=== PATIENT | female | born 1975 ===

== ENCOUNTER 2017-03-10 15:12 | Inpatient (IN) | payer MEDICAID ==
[2017-03-10 15:12] VITALS: BMI 26.1
[2017-03-10 15:45] LABS: RBC URINE 24 /hpf (0-3); URINE BACTERIA MOD (<OCC); URINE BILIRUBIN NEGATIVE (NEGATIVE); URINE BLOOD 2+ (NEGATIVE); URINE COLOR Yellow (YELLOW); URINE GLUCOSE (UA) 3+ mg/dL (Normal); URINE KETONE NEGATIVE (NEGATIVE); URINE LEUKOCYTE ESTERASE 3+ Leu/uL (Negative); URINE PROTEIN 2+ mg/dL (NEGATIVE); URINE UROBILINOGEN NORMAL mg/dL (0.2-1.0); WBC CLUMPS MANY /hpf; WBC URINE 1227 /hpf (0-5)
--- NOTE | 2017-03-10 15:50 | C.PDOC ---
History Of Present Illness 41 yr old female w/PMHx of IDDM, Thalassemia, presents to the ER for evaluation of superpubic discomfort for the past 3 days, associated with pain with urination and frequency. Otherwise, Patient denies fever, chills, headache, dizziness, malaise, chest pain, SOB, dyspnea, diaphoresis, palpitation, abd. pain, nausea, vomiting, diarrhea, hematuria, vaginal discharge, prolong vaginal bleeding, denies blood in stool, denies back pain. Pt admits, " my sugar was high for past few weeks. I saw my doctor who change my Insulin to different brand. Today, when I checked my sugar it was in 300'". Ambulate to Ed for evaluation, not in any apparent distress. Time Seen by Provider: 03/10/17 15:31 Chief Complaint (Nursing): Female Genitourinary History Per: Patient History/Exam Limitations: no limitations Onset/Duration Of Symptoms: Days (3) Past Medical History Reviewed: Historical Data, Nursing Documentation, Vital Signs Vital Signs: Last Vital Signs Temp 98.2 F 03/10/17 22:57 Pulse 92 H 03/10/17 22:57 Resp 18 03/10/17 22:57 BP 121/62 03/10/17 22:57 Pulse Ox 98 03/10/17 22:24 - Medical History PMH: Diabetes - [facility] Procedures NAIL REMOVAL (07/08/13) Family History: States: No Known Family Hx - Social History Hx Tobacco Use: No Hx Alcohol Use: No Hx Substance Use: No - Immunization History Hx Tetanus Toxoid Vaccination: Yes Hx Influenza Vaccination: No Hx Pneumococcal Vaccination: No Review Of Systems Except As Marked, All Systems Reviewed And Found Negative. Constitutional: Negative for: Fever, Chills Cardiovascular: Negative for: Chest Pain Respiratory: Negative for: Shortness of Breath Gastrointestinal: Positive for: Abdominal Pain (Superpubic discomfort ). Negative for: Nausea, Vomiting, Diarrhea Genitourinary: Positive for: Dysuria, Frequency (Urination ). Negative for: Hematuria, Vaginal Discharge, Vaginal Bleeding Musculoskeletal: Negative for: Back Pain Neurological: Negative for: Weakness, Numbness Physical Exam - Physical Exam Appears: Non-toxic, No Acute Distress Skin: Warm, Dry, No Diaphoretic, No Pale, No Rash Eye(s): bilateral: PERRL Oral Mucosa: Moist, No Drooling Tongue: Normal Appearing Lips: Normal Appearing Throat: No Drooling Neck: Supple, Other ((-) carotid bruits) Chest: Symmetrical, No Tenderness Cardiovascular: Rhythm Regular, No Murmur, No JVD Respiratory: Normal Breath Sounds, No Accessory Muscle Use, No Rales, No Rhonchi , No Stridor, No Wheezing Gastrointestinal/Abdominal: Soft, Tenderness (Mild superpubic tenderness ), No Guarding, No Rebound Back: No CVA Tenderness Extremity: Normal ROM, No Pedal Edema, No Deformity, No Swelling Neurological/Psych: Oriented x3, Normal Speech, Normal Motor, Normal Sensation, Normal Reflexes ED Course And Treatment - Laboratory Results Result Diagrams: 03/10/17 16:53 03/10/17 16:53 Lab Interpretation: Abnormal O2 Sat by Pulse Oximetry: 100 (RA) Pulse Ox Interpretation: Normal Progress Note: Blood work was review and appears abnormal. Pt reports, has PMD in [facility] now. Preior, was pt of clinic of [facility]. On re-eavluation, remained unchanged. results review and discussed with pt, appears abnoraml from baseline H/H 02/18. case discussed with Hospitalist and admission arranged with Dx: Acute anemia, Hyperglycemia hx of IDDM, UTI, Hx of Thalassemia. Medical Decision Making Medical Decision Making: PLAN: * HCG * Urinalysis Disposition - Disposition Disposition: HOSPITALIZED Disposition Time: 18:10 Condition: STABLE - Clinical Impression Clinical Impression: Anemia, Hyperglycemia due to type 1 diabetes mellitus, UTI (urinary tract infection) - PA / SOLE SKIVER / Resident Statement MD/DO has reviewed & agrees with the documentation as recorded. - Scribe Statement The provider has reviewed the documentation as recorded by the Scribbraxton Fowler All medical record entries made by the Spenser were at my direction and personally dictated by me. I have reviewed the chart and agree that the record accurately reflects my personal performance of the history, physical exam, medical decision making, and the department course for this patient. I have also personally directed, reviewed, and agree with the discharge instructions and disposition.
[2017-03-10] MEDS ORDERED: Sodium Chloride 0.9% 1,000 ML IV ONE (16:47)
[2017-03-10] MEDS ORDERED: (Novolin R) Insulin Human Regular 100 units/ml vial IV ONE (16:47)
[2017-03-10 16:56] LABS: HEMATOCRIT 21.1 % (34.0-47.0); MEAN CELL VOLUME 48.5 fL (81.0-99.0); MEAN CORPUSCULAR HEMOGLOBIN 12.3 pg (27.0-31.0); MEAN CORPUSCULAR HGB CONC 25.3 g/dL (33.0-37.0); MEAN PLATELET VOLUME 8.4 fL (7.2-11.7); RED CELL DISTRIBUTION WIDTH 22.3 % (11.5-14.5); WHITE BLOOD COUNT 6.9 K/uL (4.8-10.8)
[2017-03-10] MEDS ORDERED: cefTRIAXone IV 1 gm in Dextros 50 ML IVPB ONE (17:00)
[2017-03-10] MEDS ORDERED: (Novolin R) Insulin Human Regular 100 units/ml vial ONE ×2 (17:01→22:07)
[2017-03-10 17:15] LABS: CHLORIDE 97 mmol/L (98-107); POTASSIUM 3.9 mmol/L (3.6-5.2); SODIUM 132 mmol/L (132-148)
[2017-03-10 17:17] LABS: BILIRUBIN,TOTAL 0.5 mg/dL (0.2-1.3); CARBON DIOXIDE 24 mmol/L (22-30); GFR AFRICAN-AMERICAN > 60
[2017-03-10 17:18] LABS: ALB/GLOB RATIO 1.1 (1.0-2.1); ALKALINE PHOSPHATASE 78 U/L (38-126); ALT/SGPT 22 U/L (9-52); AST/SGOT 16 U/L (14-36); BLOOD UREA NITROGEN 17 mg/dL (7-17); CALCIUM 8.6 mg/dl (8.6-10.4); GLUCOSE,RANDOM 396 mg/dL (65-105)
[2017-03-10] MEDS ORDERED: cefTRIAXone IV 1 gm in Dextros 50 ML IVPB STA (18:36)
[2017-03-10] MEDS: Insulin Detemir 100 units/ml Vial (Levemir) SC SCH (22:08)
[2017-03-10] MEDS: (Novolin R) Insulin Human Regular 100 units/ml vial SC SCH (22:08)
[2017-03-10] MEDS ORDERED: Insulin Detemir 100 units/ml Vial (Levemir) SC ONE (22:08)
--- NOTE | 2017-03-10 22:31 | CP.PCM.HP ---
<Sancho Melody PARADA - Last Filed: 03/10/17 22:55> History of Present Illness - History of Present Illness History of Present Illness: CC: "Pressure for two days" Patient is a 41 year old female with past medical history of diabetes, iron deficiency anemia, and alpha thalassemia who presents with complaint of suprapubic pressure for two days. Patient states she did not seek other medical attention for this and figured she would just come to the ED for antibiotics. Patient has had UTI in the past and states her current symptoms feel similar. Patient also complains of arm and leg heaviness and generalized fatigue for the past 6 months. Patient states she recently saw her PMD on for visit regarding diabetes management. Patient was taken off of her metformin and levemir regimen at that time and started on toujeo. Patient states since starting toujeo her fasting sugars have been high, but decreasing. Her fasting sugar on day of admission was 221. Patient denies nausea, vomiting, diarrhea, constipation. Patient denies fevers and chills. PMD: Beatriz Delgado PMHX: DM, iron deficiency anemia, alpha thalassemia Meds: Toujeo for 4 days, ASA 81mg, losartan 25mg. Formerly on metformin 1000mg BID, insulin detemir 40u q12h PSHx: hallux nail plate avulsion, right 4th toe amputation FamHx: DM in mother, sister, brother Social: denies tobacco, alcohol, drugs, lives with children Present on Admission - Present on Admission Any Indicators Present on Admission: Yes History of Uncontrolled Diabetes: Yes Review of Systems - Constitutional Constitutional: Fatigue. absent: Chills, Fever - EENT Eyes: absent: Blurred Vision Ears: Dizziness - Cardiovascular Cardiovascular: absent: Chest Pain, Dyspnea - Respiratory Respiratory: absent: Cough - Gastrointestinal Gastrointestinal: absent: Abdominal Pain, Nausea, Vomiting - Genitourinary Genitourinary: Change in Urinary Stream, Dysuria, Urinary Frequency - Menstruation Menstruation: Heavy Menses - Musculoskeletal Musculoskeletal: Back Pain - Neurological Neurological: Dizziness, Weakness - Endocrine Endocrine: Polydipsia, Polyphagia Past Patient History - Past Social History Smoking Status: Never Smoked - ENDOCRINE/METABOLIC Hx Endocrine Disorders: Yes Hx Diabetes Mellitus Type 1: Yes - PSYCHIATRIC Hx Substance Use: No - SURGICAL HISTORY Hx Surgeries: Yes 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) Meds Allergies/Adverse Reactions: Allergies Allergy/AdvReac Type Severity Reaction Status Date / Time No Known Allergies Allergy Verified 03/10/17 15:20 Physical Exam - Constitutional Appears: Non-toxic, No Acute Distress - Head Exam Head Exam: ATRAUMATIC, NORMAL INSPECTION - Eye Exam Eye Exam: EOMI Additional comments: conjunctival pallor - ENT Exam ENT Exam: Mucous Membranes Moist - Respiratory Exam Respiratory Exam: Clear to Auscultation Bilateral - Cardiovascular Exam Cardiovascular Exam: +S1, +S2 - GI/Abdominal Exam GI & Abdominal Exam: Normal Bowel Sounds, Soft. absent: Tenderness - Extremities Exam Extremities exam: Negative for: calf tenderness Additional comments: right foot with fourth digit amputation, well-healed scar - Back Exam Additional comments: mild b/l CVA tenderness - Neurological Exam Neurological exam: Alert, Oriented x3 Additional comments: diminished sensation to bilateral feet - Psychiatric Exam Psychiatric exam: Normal Affect - Skin Skin Exam: Dry, Warm Additional comments: darkened skin around neck and hair line on face Results - Vital Signs Recent Vital Signs: Last Vital Signs Temp 98.9 F 03/10/17 21:24 Pulse 80 03/10/17 21:24 Resp 12 03/10/17 21:24 BP 129/62 03/10/17 21:24 Pulse Ox 99 03/10/17 21:24 - Labs Result Diagrams: 03/10/17 16:53 03/10/17 16:53 Labs: Laboratory Results - last 24 hr 03/10/17 03/10/17 03/10/17 20:33 21:55 22:03 Retic Count 2.3 H POC Glucose (mg/dL) 318 H 345 H Assessment & Plan - Assessment and Plan (Free Text) Assessment: 1. UTI patient received ceftriaxone in ER, will continue Urine culture pending will check renal US to rule out pyelonephritis will also start pyridium for total two days for dysuria 2. Symptomatic Anemia with Hx alpha thalassemia Hgb 5.3 on admission will transfuse [address] Thomas, heme-onc, consulted- help appreciated will check iron studies, retic count, ferretin, b12, folate will consider iron infusion pending lab results 3. Diabetes Will check Hgb A1c will start patient on levemir 40u Q12h with additional sliding scale coverage as toujeo is non-formulary Will continue patient's home medication losartan 25mg daily for renal protection as well was ASA 81mg accuchecks ACHS 4. Prophylactic measure heparin sc pepcid D/W Dr. Sánchez <Gurdeep Sánchez - Last Filed: 03/11/17 06:29> Results - Vital Signs Recent Vital Signs: Last Vital Signs Temp 98.1 F 03/11/17 04:15 Pulse 75 03/11/17 04:15 Resp 20 03/11/17 04:15 BP 131/78 03/11/17 04:15 Pulse Ox 98 03/11/17 04:15 - Labs Result Diagrams: 03/10/17 16:53 03/10/17 16:53 Labs: Laboratory Results - last 24 hr 03/10/17 03/10/17 03/10/17 20:33 21:55 21:55 Retic Count 2.3 H POC Glucose (mg/dL) 318 H % Saturation < 2.4 L Ferritin Vitamin B12 Folate 03/10/17 03/10/17 21:55 22:03 Retic Count POC Glucose (mg/dL) 345 H % Saturation Ferritin 2.9 Vitamin B12 > 1000 H Folate 10.3 Assessment & Plan - Date & Time Date: 03/11/17 (I have seen and examined the patient. I agree with the findings and plan of care as documented by Dr. Alexander. Patient with symptomatic anemia. Transfused 1 unit PRBC. Follow CBC. History of thalassemia. Consult heme/onc. Check iron studies, B12, and folate. Rocephin for UTI. Renal Ultrasound for suspected pyelo. NISS and accuchecks for history of diabetes. Adjust home meds as necessary. Monitor for acute changes. ) Time: 06:26 Attending/Attestation - Attestation I have personally seen and examined this patient.: Yes I have fully participated in the care of the patient.: Yes I have reviewed all pertinent clinical information: Yes
[2017-03-10 23:34] LABS: FOLATE 10.3 ng/mL
[2017-03-11 07:59] LABS: BASO % 0.3 % (0.0-2.0); EOS # 0.1 K/uL (0.0-0.7); EOS % 1.9 % (0.0-4.0); HEMATOCRIT 26.2 % (34.0-47.0); LYMPH # 2.1 K/uL (1.0-4.3); LYMPH % 29.2 % (20.0-40.0); MEAN CORPUSCULAR HEMOGLOBIN 15.4 pg (27.0-31.0); MEAN CORPUSCULAR HGB CONC 27.7 g/dL (33.0-37.0); MEAN PLATELET VOLUME 9.3 fL (7.2-11.7); MONO # 0.4 K/uL (0.0-0.8); MONO % 5.1 % (0.0-10.0); NRBC % 0.1 % (0.0-2.0); RED CELL DISTRIBUTION WIDTH 35.4 % (11.5-14.5); WHITE BLOOD COUNT 7.2 K/uL (4.8-10.8)
[2017-03-11 08:05] LABS: CHLORIDE 103 mmol/L (98-107); SODIUM 137 mmol/L (132-148)
[2017-03-11 08:06] LABS: POTASSIUM 3.3 mmol/L (3.6-5.2)
[2017-03-11 08:08] LABS: ALB/GLOB RATIO 1.1 (1.0-2.1); ALKALINE PHOSPHATASE 47 U/L (38-126); ALT/SGPT 20 U/L (9-52); AST/SGOT 12 U/L (14-36); BILIRUBIN,TOTAL 0.7 mg/dL (0.2-1.3); BLOOD UREA NITROGEN 11 mg/dL (7-17); CARBON DIOXIDE 25 mmol/L (22-30); GFR AFRICAN-AMERICAN > 60; GLUCOSE,RANDOM 101 mg/dL (65-105); TOTAL PROTEIN 6.4 g/dL (6.3-8.3)
[2017-03-11 08:09] LABS: CALCIUM 8.2 mg/dl (8.6-10.4)
[2017-03-11 08:10] LABS: MEAN CELL VOLUME 55.5 fL (81.0-99.0)
[2017-03-11] MEDS: (Novolin R) Insulin Human Regular 100 units/ml vial SC SCH ×4 (08:22→22:26)
--- NOTE | 2017-03-11 10:24 | US ---
PROCEDURE: Ultrasound of the Kidneys HISTORY: eval for pyelo COMPARISON: None available. TECHNIQUE: Sonogram of the kidneys. FINDINGS: RIGHT KIDNEY: Measures: 12.0 x 5.5 x 6.3 cm. No obstructing calculus, hydronephrosis, or renal cyst identified. LEFT KIDNEY: Measures: 12.6 x 5.4 x 6.8 cm. No obstructing calculus, hydronephrosis, or renal cyst identified. OTHER FINDINGS: None. IMPRESSION: Unremarkable renal sonogram. Please note that pyelonephritis cannot be excluded by sonography alone.
[2017-03-11] MEDS: Insulin Detemir 100 units/ml Vial (Levemir) SC SCH ×2 (11:15→22:25)
[2017-03-11 11:47] LABS: EOS # 0.1 K/uL (0.0-0.7); LYMPH # 1.2 K/uL (1.0-4.3); LYMPH % 19.2 % (20.0-40.0); MONO # 0.3 K/uL (0.0-0.8)
[2017-03-11 11:56] LABS: BASO % 0.6 % (0.0-2.0); EOS % 1.2 % (0.0-4.0); HEMATOCRIT 25.2 % (34.0-47.0); MEAN CELL VOLUME 55.7 fL (81.0-99.0); MEAN CORPUSCULAR HEMOGLOBIN 15.6 pg (27.0-31.0); MEAN PLATELET VOLUME 9.3 fL (7.2-11.7); MONO % 4.3 % (0.0-10.0); RED CELL DISTRIBUTION WIDTH 31.5 % (11.5-14.5); WHITE BLOOD COUNT 6.1 K/uL (4.8-10.8)
--- NOTE | 2017-03-11 14:11 | CP.PCM.CON ---
History of Present Illness - History of Present Illness History of Present Illness: dictated Past Patient History - Past Medical History & Family History Past Medical History?: Yes - Past Social History Smoking Status: Never Smoked - CARDIAC Hx Cardiac Disorders: No - PULMONARY Hx Respiratory Disorders: No - NEUROLOGICAL Hx Neurological Disorder: No - HEENT Hx HEENT Problems: No - RENAL Hx Chronic Kidney Disease: No Hx Dialysis: No - ENDOCRINE/METABOLIC Hx Endocrine Disorders: Yes Hx Diabetes Mellitus Type 1: Yes - HEMATOLOGICAL/ONCOLOGICAL Hx Blood Disorders: Yes Hx Anemia: Yes Hx Blood Transfusions: Yes Hx Blood Transfusion Reaction: No - INTEGUMENTARY Hx Dermatological Problems: No - MUSCULOSKELETAL/RHEUMATOLOGICAL Hx Musculoskeletal Disorders: No Hx Falls: No - GASTROINTESTINAL Hx Gastrointestinal Disorders: No - GENITOURINARY/GYNECOLOGICAL Hx Genitourinary Disorders: Yes Hx Urinary Tract Infection: Yes - PSYCHIATRIC Hx Psychophysiologic Disorder: No Hx Substance Use: No - SURGICAL HISTORY Hx Surgeries: Yes 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) - ANESTHESIA Hx Anesthesia: Yes Hx Anesthesia Reactions: No Hx Malignant Hyperthermia: No Has any member of the family had a problem w/ anesthesia?: No Meds Allergies/Adverse Reactions: Allergies Allergy/AdvReac Type Severity Reaction Status Date / Time No Known Allergies Allergy Verified 03/10/17 15:20 - Medications Medications: Current Medications Aspirin (Aspirin Chewable) 81 mg PO DAILY [facility] Last Admin: 03/11/17 11:15 Dose: 81 mg Famotidine (Pepcid) 20 mg PO DAILY [facility] Last Admin: 03/11/17 11:14 Dose: 20 mg Heparin Sodium (Porcine) (Heparin) 5,000 units SC Q8 [facility] Last Admin: 03/11/17 06:08 Dose: Not Given Ceftriaxone Sodium 1 gm/ (Sodium Chloride) 100 mls @ 100 mls/hr IVPB Q24H [facility] Last Admin: 03/11/17 06:06 Dose: 100 mls/hr Vancomycin/Sodium Chloride (Vancocin) 1 gm in 200 mls @ 133.333 mls/hr IVPB Q12H [facility] Insulin Detemir (Levemir) 40 unit SC Q12 [facility] Last Admin: 03/11/17 11:15 Dose: 40 unit Insulin Human Regular (Novolin R) 0 unit SC ACHS [facility] PRN Reason: Protocol Last Admin: 03/11/17 08:22 Dose: Not Given Losartan Potassium (Cozaar) 25 mg PO DAILY [facility] Last Admin: 08/15/17 11:14 Dose: 25 mg Phenazopyridine HCl (Pyridium) 200 mg PO TIDPC [facility] Stop: 03/13/17 09:01 Last Admin: 03/11/17 11:14 Dose: 200 mg Pneumococcal Polyvalent Vaccine (Pneumovax 23 Vaccine) 0.5 ml IM .ONCE ONE Stop: 03/12/17 10:01 Results - Vital Signs Recent Vital Signs: Last Vital Signs Temp 98.2 F 03/11/17 07:50 Pulse 91 H 03/11/17 11:18 Resp 20 03/11/17 07:50 BP 132/70 03/11/17 11:18 Pulse Ox 99 03/11/17 07:50 - Labs Result Diagrams: 03/11/17 11:37 03/11/17 07:46 Labs: Laboratory Results - last 24 hr 03/10/17 03/10/17 03/10/17 20:33 21:55 21:55 WBC RBC Hgb Hct MCV MCH MCHC RDW Plt Count MPV Neut % (Auto) Lymph % (Auto) [place] % (Auto) Eos % (Auto) Baso % (Auto) Neut # Lymph # [place] # Eos # Baso # Differential Comment Retic Count 2.3 H Sodium Potassium Chloride Carbon Dioxide Anion Gap BUN Creatinine Est GFR ( Amer) Est GFR (Non-Af Amer) POC Glucose (mg/dL) 318 H Random Glucose Calcium % Saturation < 2.4 L Ferritin Total Bilirubin AST ALT Alkaline Phosphatase Total Protein Albumin Globulin Albumin/Globulin Ratio Vitamin B12 Folate Procalcitonin 03/10/17 03/10/17 03/11/17 21:55 22:03 07:07 WBC RBC Hgb Hct MCV MCH MCHC RDW Plt Count MPV Neut % (Auto) Lymph % (Auto) [place] % (Auto) Eos % (Auto) Baso % (Auto) Neut # Lymph # [place] # Eos # Baso # Differential Comment Retic Count Sodium Potassium Chloride Carbon Dioxide Anion Gap BUN Creatinine Est GFR ( Amer) Est GFR (Non-Af Amer) POC Glucose (mg/dL) 345 H 126 H Random Glucose Calcium % Saturation Ferritin 2.9 Total Bilirubin AST ALT Alkaline Phosphatase Total Protein Albumin Globulin Albumin/Globulin Ratio Vitamin B12 > 1000 H Folate 10.3 Procalcitonin 03/11/17 03/11/17 03/11/17 07:46 07:46 10:44 WBC 7.2 RBC 4.71 Hgb 7.3 L D Hct 26.2 L MCV 55.5 L D MCH 15.4 L MCHC 27.7 L RDW 35.4 H Plt Count 143 MPV 9.3 Neut % (Auto) 63.5 Lymph % (Auto) 29.2 [place] % (Auto) 5.1 Eos % (Auto) 1.9 Baso % (Auto) 0.3 Neut # 4.6 Lymph # 2.1 [place] # 0.4 Eos # 0.1 Baso # 0.0 Differential Comment Retic Count Sodium 137 Potassium 3.3 L Chloride 103 Carbon Dioxide 25 Anion Gap 12 BUN 11 Creatinine 0.5 L Est GFR ( Amer) > 60 Est GFR (Non-Af Amer) > 60 POC Glucose (mg/dL) 290 H Random Glucose 101 Calcium 8.2 L % Saturation Ferritin Total Bilirubin 0.7 AST 12 L D ALT 20 Alkaline Phosphatase 47 Total Protein 6.4 Albumin 3.3 L Globulin 3.1 Albumin/Globulin Ratio 1.1 Vitamin B12 Folate Procalcitonin 03/11/17 03/11/17 11:37 11:37 WBC 6.1 RBC 4.53 Hgb 7.1 L Hct 25.2 L MCV 55.7 L MCH 15.6 L MCHC 28.0 L RDW 31.5 H Plt Count 162 MPV 9.3 Neut % (Auto) 74.7 Lymph % (Auto) 19.2 L [place] % (Auto) 4.3 Eos % (Auto) 1.2 Baso % (Auto) 0.6 Neut # 4.6 Lymph # 1.2 [place] # 0.3 Eos # 0.1 Baso # 0.0 Differential Comment Retic Count Sodium Potassium Chloride Carbon Dioxide Anion Gap BUN Creatinine Est GFR ( Amer) Est GFR (Non-Af Amer) POC Glucose (mg/dL) Random Glucose Calcium % Saturation Ferritin Total Bilirubin AST ALT Alkaline Phosphatase Total Protein Albumin Globulin Albumin/Globulin Ratio Vitamin B12 Folate Procalcitonin 0.05 L
[2017-03-11] MEDS: Vancomycin 1 gm/NS 200 ml 1 GM/200 ML BAG IVPB SCH (14:39)
--- NOTE | 2017-03-11 17:29 | CP.PCM.PN ---
Subjective - Date & Time of Evaluation Date of Evaluation: 03/11/17 Time of Evaluation: 09:00 - Subjective Subjective: PGY-[address] Booth Patient seen and examined at bedside. Patient complains of suprapubic pressure when she urinates but denies pain with urination. Patient denies fevers, chills , headaches, dizziness, chest pain, SOB, abdominal pain, n/v/c/d. Objective - Vital Signs/Intake and Output Vital Signs (last 24 hours): Temp Pulse Resp BP Pulse Ox 98.5 F 82 20 125/76 97 03/11/17 17:26 03/11/17 17:26 03/11/17 17:26 03/11/17 17:26 03/11/17 15:50 Intake and Output: 03/11/17 03/11/17 06:59 18:59 Intake Total 0 325 Balance 0 325 - Medications Medications: Current Medications Aspirin (Aspirin Chewable) [address] [facility] Last Admin: 03/11/17 11:15 Dose: 81 mg Famotidine (Pepcid) [address] [facility] Last Admin: 03/11/17 11:14 Dose: 20 mg Ferrous Sulfate (Feosol) [address] [facility] Heparin Sodium (Porcine) (Heparin) 5,[address] [facility] Last Admin: 03/11/17 14:00 Dose: Not Given Ceftriaxone Sodium 1 gm/ (Sodium Chloride) 100 mls @ 100 mls/hr IVPB Q24H [facility] Last Admin: 03/11/17 06:06 Dose: 100 mls/hr Vancomycin/Sodium Chloride (Vancocin) 1 gm in 200 mls @ 133.333 mls/hr IVPB Q12H [facility] Last Admin: 03/11/17 14:39 Dose: 133.333 mls/hr Insulin Detemir (Levemir) [address] [facility] Last Admin: 03/11/17 11:15 Dose: 40 unit Insulin Human Regular (Novolin R) [address] [facility] PRN Reason: Protocol Last Admin: 03/11/17 12:30 Dose: 4 unit Losartan Potassium (Cozaar) [address] [facility] Last Admin: 03/11/17 11:14 Dose: 25 mg Phenazopyridine HCl (Pyridium) [address] [facility] Stop: 03/13/17 09:01 Last Admin: 03/11/17 14:00 Dose: 200 mg Pneumococcal Polyvalent Vaccine (Pneumovax 23 Vaccine) 0.5 ml IM .ONCE ONE Stop: 03/12/17 10:01 - Labs Labs: 03/11/17 11:37 03/11/17 07:46 - Constitutional Appears: No Acute Distress - Head Exam Head Exam: ATRAUMATIC, NORMAL INSPECTION, NORMOCEPHALIC - Eye Exam Eye Exam: EOMI, PERRL - ENT Exam ENT Exam: Mucous Membranes Moist - Respiratory Exam Respiratory Exam: Clear to Ausculation Bilateral. absent: Rales, Rhonchi, Wheezes - Cardiovascular Exam Cardiovascular Exam: REGULAR RHYTHM, +S1, +S2 - GI/Abdominal Exam GI & Abdominal Exam: Soft, Normal Bowel Sounds. absent: Tenderness - Back Exam Back Exam: absent: CVA tenderness (L), CVA tenderness (R) - Neurological Exam Neurological Exam: Alert, Awake, Oriented x3 - Skin Skin Exam: Dry, Intact, Warm Additional comments: Acanthosis nigricans noted around neck and upper back Assessment and Plan - Assessment and Plan (Free Text) Plan: 1. UTI Ceftriaxone 1 gm Q24H since 03/10 Vancomycin 1 gm Q12 added 03/11 due to S. Aureus in the urine Dr. Landeros (ID) consulted, help appreciated. F/u blood cultures F/u Echo to r/o vegetation formation in the heart due to S. Aureus Pyridium for total two days for dysuria 2. Symptomatic Anemia with Hx alpha thalassemia Hgb 5.3 on admission, currently 7.1 after transfused 2 units PRBC will transfuse 1 more unit and check CBC after completion Dr. Thomas, heme-onc, consulted- help appreciated Ferrous sulfate 325 mg PO daily 3. Diabetes Will check Hgb A1c Levemir 40u Q12h Regular ISS Home medication Losartan 25mg daily for renal protection as well as ASA 81mg accuchecks ACHS 4. Prophylactic measure heparin 5000 units SC Q8 pepcid 20 mg PO daily [facility] Dr. Emmy Duffy PGY-1
[2017-03-11] MEDS: Ferric Sodium Gluconat Complex 62.5 mg/5 ml Vial IVPB SCH (22:25)
[2017-03-12] MEDS: Vancomycin 1 gm/NS 200 ml 1 GM/200 ML BAG IVPB SCH ×2 (00:56→14:31)
--- NOTE | 2017-03-12 01:23 | CP.PCM.CON ---
History of Present Illness - History of Present Illness History of Present Illness: 41 year old female with a history of DM, chronic iron deficiency anemia, admitted with UTI and symptomatic anemia. The patient reports to suprapubic pressure and discomfort. She also admits to progressive fatigue and dyspea on exertion. She denies abnormal bleeding and bruising. She is currently s/p PRBC transfusion and reports to feeling better. Past medical history: DM, iron deficiency anemia Past surgical history: Toe amputation Family history: Denies hematologic and oncologic problems Social history: Denies tobacco, alcohol, and illicit drug use. Allergies: NKA Review of systems: All remaining review of systems including HEENT, cardiovascular, respiratory, gastrointestinal, genitourinary, musculoskeletal, dermatologic, neurologic, and psychiatric are negative unless mentioned in the HPI. Past Patient History - Past Medical History & Family History Past Medical History?: Yes - Past Social History Smoking Status: Never Smoked - CARDIAC Hx Cardiac Disorders: No - PULMONARY Hx Respiratory Disorders: No - NEUROLOGICAL Hx Neurological Disorder: No - HEENT Hx HEENT Problems: No - RENAL Hx Chronic Kidney Disease: No Hx Dialysis: No - ENDOCRINE/METABOLIC Hx Endocrine Disorders: Yes Hx Diabetes Mellitus Type 1: Yes - HEMATOLOGICAL/ONCOLOGICAL Hx Blood Disorders: Yes Hx Anemia: Yes Hx Blood Transfusions: Yes Hx Blood Transfusion Reaction: No - INTEGUMENTARY Hx Dermatological Problems: No - MUSCULOSKELETAL/RHEUMATOLOGICAL Hx Musculoskeletal Disorders: No Hx Falls: No - GASTROINTESTINAL Hx Gastrointestinal Disorders: No - GENITOURINARY/GYNECOLOGICAL Hx Genitourinary Disorders: Yes Hx Urinary Tract Infection: Yes - PSYCHIATRIC Hx Psychophysiologic Disorder: No Hx Substance Use: No - SURGICAL HISTORY Hx Surgeries: Yes 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) - ANESTHESIA Hx Anesthesia: Yes Hx Anesthesia Reactions: No Hx Malignant Hyperthermia: No Has any member of the family had a problem w/ anesthesia?: No Meds Allergies/Adverse Reactions: Allergies Allergy/AdvReac Type Severity Reaction Status Date / Time No Known Allergies Allergy Verified 03/10/17 15:20 - Medications Medications: Current Medications Aspirin (Aspirin Chewable) 81 mg PO DAILY [facility] Last Admin: 03/11/17 11:15 Dose: 81 mg Famotidine (Pepcid) 20 mg PO DAILY [facility] Last Admin: 03/11/17 11:14 Dose: 20 mg Ferric Sodium Gluconate Complex (Ferrlecit) 125 mg IVPB DAILY [facility] Stop: 03/19/17 18:55 Last Admin: 03/11/17 22:25 Dose: 125 mg Heparin Sodium (Porcine) (Heparin) 5,000 units SC Q8 [facility] Last Admin: 03/11/17 22:00 Dose: Not Given Ceftriaxone Sodium 1 gm/ (Sodium Chloride) 100 mls @ 100 mls/hr IVPB Q24H [facility] Last Admin: 03/11/17 06:06 Dose: 100 mls/hr Vancomycin/Sodium Chloride (Vancocin) 1 gm in 200 mls @ 133.333 mls/hr IVPB Q12H [facility] Last Admin: 03/12/17 00:56 Dose: 133.333 mls/hr Insulin Detemir (Levemir) 40 unit SC Q12 [facility] Last Admin: 03/11/17 22:25 Dose: 40 unit Insulin Human Regular (Novolin R) 0 unit SC ACHS [facility] PRN Reason: Protocol Last Admin: 03/11/17 22:26 Dose: 2 unit Losartan Potassium (Cozaar) 25 mg PO DAILY [facility] Last Admin: 03/11/17 11:14 Dose: 25 mg Phenazopyridine HCl (Pyridium) 200 mg PO TIDPC [facility] Stop: 03/13/17 09:01 Last Admin: 03/11/17 18:48 Dose: 200 mg Pneumococcal Polyvalent Vaccine (Pneumovax 23 Vaccine) 0.5 ml IM .ONCE ONE Stop: 03/12/17 10:01 Physical Exam - Head Exam Head Exam: ATRAUMATIC - Eye Exam Eye Exam: Normal appearance - ENT Exam ENT Exam: Mucous Membranes Dry - Respiratory Exam Respiratory Exam: NORMAL BREATHING PATTERN - Cardiovascular Exam Cardiovascular Exam: +S1, +S2 - GI/Abdominal Exam GI & Abdominal Exam: Normal Bowel Sounds - Extremities Exam Extremities exam: Positive for: normal inspection - Neurological Exam Neurological exam: Oriented x3 - Psychiatric Exam Psychiatric exam: Normal Affect, Normal Mood - Skin Skin Exam: Warm Results - Vital Signs Recent Vital Signs: Last Vital Signs Temp 98.1 F 03/11/17 23:23 Pulse 79 03/11/17 23:23 Resp 18 03/11/17 23:23 BP 159/79 H 03/11/17 23:23 Pulse Ox 99 03/11/17 23:23 - Labs Result Diagrams: 03/11/17 11:37 03/11/17 07:46 Labs: Laboratory Results - last 24 hr 03/11/17 03/11/17 03/11/17 07:07 07:46 07:46 WBC 7.2 RBC 4.71 Hgb 7.3 L D Hct 26.2 L MCV 55.5 L D MCH 15.4 L MCHC 27.7 L RDW 35.4 H Plt Count 143 MPV 9.3 Neut % (Auto) 63.5 Lymph % (Auto) 29.2 [place] % (Auto) 5.1 Eos % (Auto) 1.9 Baso % (Auto) 0.3 Neut # 4.6 Lymph # 2.1 [place] # 0.4 Eos # 0.1 Baso # 0.0 Differential Comment Sodium 137 Potassium 3.3 L Chloride 103 Carbon Dioxide 25 Anion Gap 12 BUN 11 Creatinine 0.5 L Est GFR ( Amer) > 60 Est GFR (Non-Af Amer) > 60 POC Glucose (mg/dL) 126 H Random Glucose 101 Calcium 8.2 L Total Bilirubin 0.7 AST 12 L D ALT 20 Alkaline Phosphatase 47 Total Protein 6.4 Albumin 3.3 L Globulin 3.1 Albumin/Globulin Ratio 1.1 Procalcitonin 03/11/17 03/11/17 03/11/17 10:44 11:37 11:37 WBC 6.1 RBC 4.53 Hgb 7.1 L Hct 25.2 L MCV 55.7 L MCH 15.6 L MCHC 28.0 L RDW 31.5 H Plt Count 162 MPV 9.3 Neut % (Auto) 74.7 Lymph % (Auto) 19.2 L [place] % (Auto) 4.3 Eos % (Auto) 1.2 Baso % (Auto) 0.6 Neut # 4.6 Lymph # 1.2 [place] # 0.3 Eos # 0.1 Baso # 0.0 Differential Comment Sodium Potassium Chloride Carbon Dioxide Anion Gap BUN Creatinine Est GFR ( Amer) Est GFR (Non-Af Amer) POC Glucose (mg/dL) 290 H Random Glucose Calcium Total Bilirubin AST ALT Alkaline Phosphatase Total Protein Albumin Globulin Albumin/Globulin Ratio Procalcitonin 0.05 L 03/11/17 03/11/17 16:34 21:28 WBC RBC Hgb Hct MCV MCH MCHC RDW Plt Count MPV Neut % (Auto) Lymph % (Auto) [place] % (Auto) Eos % (Auto) Baso % (Auto) Neut # Lymph # [place] # Eos # Baso # Differential Comment Sodium Potassium Chloride Carbon Dioxide Anion Gap BUN Creatinine Est GFR ( Amer) Est GFR (Non-Af Amer) POC Glucose (mg/dL) 272 H 334 H Random Glucose Calcium Total Bilirubin AST ALT Alkaline Phosphatase Total Protein Albumin Globulin Albumin/Globulin Ratio Procalcitonin Assessment & Plan (1) Iron deficiency anemia Assessment and Plan: agree with transfusion support will start IV iron check FOBT Thank you for this interesting consult. Status: Acute
[2017-03-12 01:25] LABS: BASO # 0.1 K/uL (0.0-0.2); BASO % 0.9 % (0.0-2.0); EOS # 0.4 K/uL (0.0-0.7); EOS % 5.8 % (0.0-4.0); HEMATOCRIT 28.6 % (34.0-47.0); LYMPH % 27.1 % (20.0-40.0); MEAN CORPUSCULAR HEMOGLOBIN 16.4 pg (27.0-31.0); MEAN CORPUSCULAR HGB CONC 28.4 g/dL (33.0-37.0); MEAN PLATELET VOLUME 8.5 fL (7.2-11.7); MONO # 0.5 K/uL (0.0-0.8); MONO % 6.4 % (0.0-10.0); PLATELET COUNT 150 K/uL (130-400); RED CELL DISTRIBUTION WIDTH 39.6 % (11.5-14.5); WHITE BLOOD COUNT 7.2 K/uL (4.8-10.8)
[2017-03-12 01:34] LABS: MEAN CELL VOLUME 57.8 fL (81.0-99.0)
[2017-03-12 04:23] LABS: EOSINOPHIL 2 % (0-4); NEUTROPHIL 59 % (50-75); REACTIVE LYMPHOCYTES 4 % (0-0); TOTAL CELLS COUNTED 100
[2017-03-12 04:26] LABS: SPHEROCYTES SLIGHT
[2017-03-12 08:14] LABS: EOS # 0.4 K/uL (0.0-0.7); EOS % 5.6 % (0.0-4.0); LYMPH # 1.4 K/uL (1.0-4.3); MONO # 0.5 K/uL (0.0-0.8); NRBC % 0.1 % (0.0-2.0)
[2017-03-12 08:19] LABS: BASO # 0.1 K/uL (0.0-0.2); HEMATOCRIT 28.1 % (34.0-47.0); MEAN CELL VOLUME 57.3 fL (81.0-99.0); MEAN CORPUSCULAR HEMOGLOBIN 16.6 pg (27.0-31.0); MEAN PLATELET VOLUME 9.5 fL (7.2-11.7); MONO % 7.7 % (0.0-10.0); RED CELL DISTRIBUTION WIDTH 39.6 % (11.5-14.5); WHITE BLOOD COUNT 6.8 K/uL (4.8-10.8)
[2017-03-12] MEDS: (Novolin R) Insulin Human Regular 100 units/ml vial SC SCH ×4 (08:25→21:37)
[2017-03-12 08:35] LABS: CHLORIDE 101 mmol/L (98-107)
[2017-03-12 08:36] LABS: SODIUM 135 mmol/L (132-148)
[2017-03-12 08:38] LABS: BILIRUBIN,TOTAL 0.7 mg/dL (0.2-1.3); CARBON DIOXIDE 25 mmol/L (22-30); GFR AFRICAN-AMERICAN > 60; TOTAL PROTEIN 6.7 g/dL (6.3-8.3)
[2017-03-12 08:39] LABS: ALKALINE PHOSPHATASE 54 U/L (38-126); ALT/SGPT 20 U/L (9-52); AST/SGOT 13 U/L (14-36); BLOOD UREA NITROGEN 11 mg/dL (7-17); CALCIUM 8.5 mg/dl (8.6-10.4); GLUCOSE,RANDOM 163 mg/dL (65-105)
--- NOTE | 2017-03-12 08:59 | CON ---
INFECTIOUS DISEASE CONSULTATION DATE: REQUESTED BY: . HISTORY OF PRESENT ILLNESS: This patient is a 41-year-old female. She has history of diabetes, iron deficiency anemia, and alpha thalassemia. She is a 41-year-old female and she presented with suprapubic pain and she also says she was having some dysuria and she thought she has a UTI, so she came here, was having generalize fatigue. She is diabetic and her sugars have been running high and she denies any nausea, vomiting, or diarrhea, did not had any fever and chills. I am asked to see her, because she has Staph aureus in the urine. PAST MEDICAL HISTORY: Significant for diabetes, alpha thalassemia, and iron deficiency anemia. MEDICATIONS: She is on . She says the newer insulin for an aspirin, losartan. She was formally on metformin and insulin 40 subq. q.12h. SURGICAL HISTORY: Significant for hallux nail plate avulsion and right fourth toe amputation. FAMILY HISTORY: Significant for diabetes. Mother, sister, brother all are diabetic. SOCIAL HISTORY: She denies any drugs, alcohol or tobacco abuse. She lives with her children. REVIEW OF SYSTEMS: She did say she had fatigue, but no fever, no chills. No eyes, ear, nose, and throat symptoms. No chest pain. No shortness of breath. She had no cough, no abdominal pain. No nausea and no vomiting. Did had mild suprapubic pain and change in dysuria frequency. She does have heavy periods and she has back pain. She has dizziness, and weakness. SOCIAL HISTORY: Negative. PSYCH HISTORY: Negative. She only had surgeries on her foot before. PHYSICAL EXAMINATION: GENERAL: I find she is nontoxic, no acute distress. HEENT: Head is atraumatic and normocephalic. She is alert,oriented x3. Eye movements are unremarkable. Tongue is moist. NECK: Supple. JVP is flat as well as symmetrical. HEART: S1 and S2 is regular. No murmurs appreciated. ABDOMEN: Soft and nontender. No guarding. No rigidity present. EXTREMITIES: Have no edema, clubbing, or cyanosis at this time. LABORATORY DATA: Show white count is 6.1, hemoglobin 7.1, hematocrit 25.2, and platelet count is 162. She is very anemic. Sodium is 137, potassium 3.3, chloride is 107, and her sugars are running high. B12 and folate level is unremarkable. Calcitonin level was 0.05. Urine culture came out positive for Staph aureus and yeast species. She denies any skin ulcerations or boils in her private parts and she did had a renal ultrasound, which showed pyelonephritis cannot be excluded by sonogram. PLAN: So, on this patient I am doing order a CAT scan of the abdomen and pelvis. She has Staph aures, also needs an echocardiogram and blood cultures to rule out endocarditis, Staph aures could be still over from the endocarditis and she is anemic and should get a CAT scan of the abdomen and pelvis and to be followed. Her anemia could be related to thalassemia and to heavy periods also. Santana Landeros MD
[2017-03-12] MEDS ORDERED: Pneumococcal 23-Valent Vaccine IM ONE (10:00)
[2017-03-12] MEDS: Ferric Sodium Gluconat Complex 62.5 mg/5 ml Vial IVPB SCH (10:12)
[2017-03-12] MEDS: Insulin Detemir 100 units/ml Vial (Levemir) SC SCH ×2 (10:12→23:25)
[2017-03-12] MEDS ORDERED: Iohexol 240 (50 ml) PO ONE (11:15)
--- NOTE | 2017-03-12 13:04 | CP.PCM.PN ---
Subjective - Date & Time of Evaluation Date of Evaluation: 03/12/17 Time of Evaluation: 12:15 - Subjective Subjective: No complaints. Objective - Vital Signs/Intake and Output Vital Signs (last 24 hours): Temp Pulse Resp BP Pulse Ox 98.3 F 64 20 129/79 98 03/12/17 07:55 03/12/17 07:55 03/12/17 07:55 03/12/17 07:55 03/12/17 07:55 Intake and Output: 03/12/17 03/12/17 06:59 18:59 Intake Total 1802 Balance 1802 - Medications Medications: Current Medications Aspirin (Aspirin Chewable) 81 mg PO DAILY [facility] Last Admin: 03/12/17 10:11 Dose: 81 mg Famotidine (Pepcid) 20 mg PO DAILY [facility] Last Admin: 03/12/17 10:11 Dose: 20 mg Ferric Sodium Gluconate Complex (Ferrlecit) 125 mg IVPB DAILY [facility] Stop: 03/19/17 18:55 Last Admin: 03/12/17 10:12 Dose: 125 mg Heparin Sodium (Porcine) (Heparin) 5,000 units SC Q8 [facility] Last Admin: 03/12/17 06:19 Dose: Not Given Ceftriaxone Sodium 1 gm/ (Sodium Chloride) 100 mls @ 100 mls/hr IVPB Q24H [facility] Last Admin: 03/12/17 03:16 Dose: 100 mls/hr Vancomycin/Sodium Chloride (Vancocin) 1 gm in 200 mls @ 133.333 mls/hr IVPB Q12H [facility] Last Admin: 03/12/17 00:56 Dose: 133.333 mls/hr Insulin Detemir (Levemir) 40 unit SC Q12 [facility] Last Admin: 03/12/17 10:12 Dose: 40 unit Insulin Human Regular (Novolin R) 0 unit SC ACHS [facility] PRN Reason: Protocol Last Admin: 03/12/17 12:24 Dose: Not Given Losartan Potassium (Cozaar) 25 mg PO DAILY [facility] Last Admin: 03/12/17 10:11 Dose: 25 mg Phenazopyridine HCl (Pyridium) 200 mg PO TIDPC [facility] Stop: 03/13/17 09:01 Last Admin: 03/12/17 10:11 Dose: 200 mg - Labs Labs: 03/12/17 08:01 08/16/17 08:01 - Head Exam Head Exam: ATRAUMATIC - Eye Exam Eye Exam: Normal appearance - ENT Exam ENT Exam: Mucous Membranes Dry - Respiratory Exam Respiratory Exam: NORMAL BREATHING PATTERN - Cardiovascular Exam Cardiovascular Exam: +S1, +S2 - GI/Abdominal Exam GI & Abdominal Exam: Normal Bowel Sounds - Extremities Exam Extremities Exam: Normal Inspection Assessment and Plan (1) Iron deficiency anemia Assessment & Plan: s/p PRBC transfusion on IV iron f/u FOBT outpatient f/u Status: Acute
[2017-03-12] MEDS ORDERED: Iodixanol 320 MG/ML 100 ML BOTTLE IV ONE (17:36)
--- NOTE | 2017-03-12 17:55 | CARD ---
APPROVED REPORT EXAM: Two-dimensional and M-mode echocardiogram with Doppler and color Doppler. Other Information Quality : GoodRhythm : NSR INDICATION ACUTE ANEMIA; R/O ENDOCARDITIS RISK FACTORS Diabetes M-Mode DIMENSIONS RVDd2.00 (2.1-3.2cm)Left Atrium (MM)4.06 (2.5-4.0cm) IVSd0.94 (0.7-1.1cm)Aortic Root2.84 (2.2-3.7cm) LVDd5.53 (4.0-5.6cm)Aortic Cusp Exc.2.08 (1.5-2.0cm) PWd0.84 (0.7-1.1cm)FS (%) 39 % LVDs3.40 (2.0-3.8cm)LVEF (%)68 (>50%) Mitral Valve MV E Czgbimda561.5cm/sMV A Tgzwamvw755.2cm/sE/A ratio0.9 TDI E/Lateral E'0.0E/Medial E'0.0 Tricuspid Valve TR Peak Ouhkhbuw846qh/sTR Peak Gr.[id number] LEFT VENTRICLE The left ventricle is normal size. There is normal left ventricular wall thickness. The left ventricular function is normal. The left ventricular ejection fraction is within the normal range. There is normal LV segmental wall motion. The left ventricular diastolic function is normal. RIGHT VENTRICLE The right ventricle is normal size. There is normal right ventricular wall thickness. The right ventricular systolic function is normal. ATRIA The left atrium size is normal. The right atrium size is normal. AORTIC VALVE The aortic valve is normal in structure. No aortic regurgitation is present. MITRAL VALVE The mitral valve is moderately thickened, can not rule out a vegitation Mitral regurgitation is trace to mild. GREAT VESSELS The aortic root is normal in size. The IVC is normal in size and collapses >50% with inspiration. <Conclusion> The mitral valve is moderately thickened, can not rule out a vegitation The left ventricle is normal size. There is normal left ventricular wall thickness. The left ventricular function is normal. The left ventricular ejection fraction is within the normal range. There is normal LV segmental wall motion. The left ventricular diastolic function is normal. Mitral regurgitation is trace to mild.
--- NOTE | 2017-03-12 18:46 | CT ---
PROCEDURE: CT Abdomen and Pelvis with oral and IV contrast. HISTORY: staph uti r/o renal carbuncle COMPARISON: Renal ultrasound performed 03/11/17 TECHNIQUE: Contiguous axial images of the abdomen and pelvis. Oral and IV contrast was administered. Coronal and Sagittal reformats generated and reviewed. Contrast dose: 100 mL Visipaque 320 Radiation dose: Total exam DLP = 587.21 mGy-cm. This CT exam was performed using one or more of the following dose reduction techniques: Automated exposure control, adjustment of the mA and/or kV according to patient size, and/or use of iterative reconstruction technique. FINDINGS: LOWER THORAX: No visible consolidation, pleural effusion, or pneumothorax. LIVER: Hypoattenuation of the liver compatible with hepatic steatosis. Hepatomegaly. GALLBLADDER AND BILE DUCTS: Unremarkable. PANCREAS: Unremarkable. SPLEEN: Unremarkable. ADRENALS: Unremarkable. KIDNEYS AND URETERS: The kidneys enhance symmetrically. No hydronephrosis or obstructing renal calculus. BLADDER: The urinary bladder appears unremarkable. REPRODUCTIVE: Abnormal lobulated enlarged appearance of the uterus compatible with fibroids. 2.4 cm probable right ovarian cyst. APPENDIX: The appendix is not identified. BOWEL: The stomach is nondistended. The bowel loops appear within normal limits of caliber without evidence of intestinal obstruction. PERITONEUM: Small pelvic and right pericolic free fluid. No definite free air. LYMPH NODES: No bulky lymphadenopathy identified. VASCULATURE: No aortic aneurysm. BONES: Mild degenerative changes. OTHER FINDINGS: Tiny fat containing umbilical hernia. IMPRESSION: The kidneys enhance symmetrically. No evidence of hydronephrosis or obstructing calculus. Small pelvic and right pericolic free fluid. Hepatic steatosis. Hepatomegaly. Tiny fat containing umbilical hernia. Abnormal lobulated enlarged appearance of the uterus compatible with fibroids. 2.4 cm probable right ovarian cyst. Pelvic ultrasound may be considered for further evaluation if indicated.
--- NOTE | 2017-03-12 20:27 | CP.PCM.PN ---
Subjective - Date & Time of Evaluation Date of Evaluation: 03/12/17 Time of Evaluation: 09:00 - Subjective Subjective: PGY-[address] Booth Patient seen and examined at bedside. Patient reports resolution of suprapubic pressure with urination. Patient denies fevers, chills, headaches, dizziness, chest pain, SOB, abdominal pain, n/v/c/d, dysuria. Objective - Vital Signs/Intake and Output Vital Signs (last 24 hours): Temp Pulse Resp BP Pulse Ox 98.5 F 80 20 131/81 99 03/12/17 16:03 03/12/17 16:03 03/12/17 16:03 03/12/17 16:03 03/12/17 16:03 Intake and Output: 03/12/17 03/13/17 18:59 06:59 Intake Total 540 Balance 540 - Medications Medications: Current Medications Aspirin (Aspirin Chewable) 81 mg PO DAILY [facility] Last Admin: 03/12/17 10:11 Dose: 81 mg Famotidine (Pepcid) 20 mg PO DAILY [facility] Last Admin: 03/12/17 10:11 Dose: 20 mg Ferric Sodium Gluconate Complex (Ferrlecit) 125 mg IVPB DAILY [facility] Stop: 03/19/17 18:55 Last Admin: 03/12/17 10:12 Dose: 125 mg Heparin Sodium (Porcine) (Heparin) 5,000 units SC Q8 [facility] Last Admin: 03/12/17 13:23 Dose: Not Given Ceftriaxone Sodium 1 gm/ (Sodium Chloride) 100 mls @ 100 mls/hr IVPB Q24H [facility] Last Admin: 03/12/17 03:16 Dose: 100 mls/hr Vancomycin/Sodium Chloride (Vancocin) 1 gm in 200 mls @ 133.333 mls/hr IVPB Q12H [facility] Last Admin: 03/12/17 14:31 Dose: 133.333 mls/hr Insulin Detemir (Levemir) 40 unit SC Q12 [facility] Last Admin: 03/12/17 10:12 Dose: 40 unit Insulin Human Regular (Novolin R) 0 unit SC ACHS [facility] PRN Reason: Protocol Last Admin: 03/12/17 16:44 Dose: Not Given Losartan Potassium (Cozaar) 25 mg PO DAILY [facility] Last Admin: 03/12/17 10:11 Dose: 25 mg Phenazopyridine HCl (Pyridium) 200 mg PO TIDPC [facility] Stop: 03/13/17 09:01 Last Admin: 03/12/17 18:41 Dose: 200 mg - Labs Labs: 03/12/17 08:01 03/12/17 08:01 - Constitutional Appears: No Acute Distress - Head Exam Head Exam: ATRAUMATIC, NORMAL INSPECTION, NORMOCEPHALIC - Eye Exam Eye Exam: EOMI, PERRL - ENT Exam ENT Exam: Mucous Membranes Moist - Respiratory Exam Respiratory Exam: Clear to Ausculation Bilateral. absent: Rales, Rhonchi, Wheezes - Cardiovascular Exam Cardiovascular Exam: REGULAR RHYTHM, +S1, +S2 - GI/Abdominal Exam GI & Abdominal Exam: Soft, Normal Bowel Sounds. absent: Tenderness Additional comments: No suprapubic tenderness - Back Exam Back Exam: absent: CVA tenderness (L), CVA tenderness (R) - Neurological Exam Neurological Exam: Alert, Awake, Oriented x3 - Skin Skin Exam: Dry, Intact, Warm Additional comments: Acanthosis nigricans neck, upper back. Assessment and Plan - Assessment and Plan (Free Text) Plan: 1. UTI Ceftriaxone 1 gm Q24H since 03/10 Vancomycin 1 gm Q12 added 03/11 due to S. Aureus in the urine Dr. Landeros (ID) consulted, help appreciated. F/u blood cultures Echo shows 68% LVEF but moderately thickened mitral valve. Unable to r/o vegetation formation. CT abd/pelvis showed normal kidneys but revealed hepatic steatosis, possible fibroids, and possible right ovarian cyst 2. Symptomatic Anemia with Hx alpha thalassemia Hgb 5.3 on admission, currently 7.1 after transfused 2 units PRBC will transfuse 1 more unit and check CBC after completion Dr. Thomas, heme-onc, consulted- help appreciated Ferrous sulfate 325 mg PO daily 3. Diabetes Hgb A1c 8.1 Levemir 40u Q12h [facility] Home medication Losartan 25mg daily for renal protection as well as ASA 81mg accuchecks ACHS 4. Prophylactic measure heparin 5000 units SC Q8 pepcid 20 mg PO daily [facility] Dr. Emmy Duffy PGY-1
[2017-03-13] MEDS: Vancomycin 1 gm/NS 200 ml 1 GM/200 ML BAG IVPB SCH (00:20)
[2017-03-13 07:55] LABS: CHLORIDE 104 mmol/L (98-107); POTASSIUM 4.2 mmol/L (3.6-5.2); SODIUM 139 mmol/L (132-148)
[2017-03-13 07:57] LABS: CARBON DIOXIDE 23 mmol/L (22-30); CHOLESTEROL 121 mg/dL (0-199); GFR AFRICAN-AMERICAN > 60
[2017-03-13 07:58] LABS: ALKALINE PHOSPHATASE 59 U/L (38-126); ALT/SGPT 20 U/L (9-52); AST/SGOT 20 U/L (14-36); BILIRUBIN,TOTAL 0.5 mg/dL (0.2-1.3); BLOOD UREA NITROGEN 11 mg/dL (7-17); CALCIUM 8.7 mg/dl (8.6-10.4); GLUCOSE,RANDOM 101 mg/dL (65-105)
[2017-03-13] MEDS: (Novolin R) Insulin Human Regular 100 units/ml vial SC SCH ×4 (08:26→21:39)
[2017-03-13] MEDS: Insulin Detemir 100 units/ml Vial (Levemir) SC SCH ×2 (09:26→21:38)
[2017-03-13] MEDS: Ferric Sodium Gluconat Complex 62.5 mg/5 ml Vial IVPB SCH (09:26)
[2017-03-13] MEDS ORDERED: Vancomycin 1 gm/NS 200 ml 1 GM/200 ML BAG IVPB SCH (11:30)
[2017-03-13 11:50] LABS: BASO % 0.6 % (0.0-2.0); EOS # 0.4 K/uL (0.0-0.7); EOS % 5.9 % (0.0-4.0); LYMPH % 14.4 % (20.0-40.0); MEAN CELL VOLUME 58.7 fL (81.0-99.0); MEAN CORPUSCULAR HEMOGLOBIN 16.5 pg (27.0-31.0); MEAN CORPUSCULAR HGB CONC 28.1 g/dL (33.0-37.0); MONO # 0.4 K/uL (0.0-0.8); MONO % 5.2 % (0.0-10.0); RED CELL DISTRIBUTION WIDTH 40.6 % (11.5-14.5); WHITE BLOOD COUNT 7.1 K/uL (4.8-10.8)
--- NOTE | 2017-03-13 14:05 | CP.PCM.CON ---
History of Present Illness - History of Present Illness History of Present Illness: consultation requested for evaluation of mitral valve endocarditis HPI:41-year-old female with past medical history significant for diabetes mellitus iron deficiency anemia and thalassemia who presented to hospital on March 10 with complaints of suprapubic pressure and discomfort. Patient apparently presented feeling that she has ongoing urinary tract infection. According to the patient she had similar presentation complaint of some arm and leg heaviness and a generalized fatigue for the last few months. Patient recently saw her primary care physician on March 07 in [place] she was taken off her insulin and metformin and switch tougeo. She denied having any nausea vomiting diarrhea constipation denies any fevers and chills. UA grew staph aureus. She was given antibiotics and subsequently blood cultures have been negative. I have been called to evaluate her for mitral valve endocarditis. Transthoracic echocardiogram showed mitral valve thickening. No documented episodes of fever chills. As stated above significant past medical history significant for diabetes iron deficiency anemia and alpha thalassemia. Review of Systems - Review of Systems All systems: reviewed and no additional remarkable complaints except - Constitutional Constitutional: As Per HPI, Fatigue, Lethargy - EENT Eyes: As Per HPI. absent: Blind Spots, Blurred Vision, Change in Vision, Decreased Night Vision, Diplopia, Discharge, Dry Eye, Exophthalmos, Floaters, Irritation, Itchy Eyes, Loss of Peripheral Vision, Pain, Photophobia, Requires Corrective Lenses, Sees Flashes, Spots in Vision, Tunnel Vision, Other Visual Disturbances, Loss of Vision, Other Ears: As Per HPI. absent: Decreased Hearing, Ear Discharge, Ear Pain, Tinnitus , Abnormal Hearing, Disequilibrium, Dizziness, Other Nose/Mouth/Throat: As Per HPI - Breasts Breasts: As Per HPI - Cardiovascular Cardiovascular: As Per HPI. absent: Acrocyanosis, Chest Pain, Chest Pain at Rest, Chest Pain with Activity, Claudication, Diaphoresis, Dyspnea, Dyspnea on Exertion, Edema, Irregular Heart Rhythm, Pain Radiating to Arm/Neck/Jaw, Leg Edema, Leg Ulcers, Lightheadedness, Orthopnea, Palpitations, Paroxysmal Nocturnal Dyspnea, Pedal Edema, Radiating Pain, Rapid Heart Rate, Slow Heart Rate, Syncope, Other - Respiratory Respiratory: As Per HPI - Gastrointestinal Gastrointestinal: As Per HPI - Genitourinary Genitourinary: As Per HPI, Dysuria, Urinary Urgency, Freq UTI - Reproductive: Female Reproductive:Female: As Per HPI - Musculoskeletal Musculoskeletal: As Per HPI. absent: Abnormal Gait, Arthralgias, Atrophy, Back Pain, Deformity, Joint Swelling, Limited Range of Motion, Loss of Height, Muscle Cramps, Muscle Weakness, Myalgias, Neck Pain, Numbness, Radiating Pain into Limb, Stiffness, Tingling, Other - Integumentary Integumentary: As Per HPI - Neurological Neurological: As Per HPI - Psychiatric Psychiatric: As Per HPI - Endocrine Endocrine: As Per HPI - Hematologic/Lymphatic Hematologic: As Per HPI Past Patient History - Past Medical History & Family History Past Medical History?: Yes Pertinent Family History: +ve for HTN and DM - Past Social History Smoking Status: Never Smoked - CARDIAC Hx Cardiac Disorders: No - PULMONARY Hx Respiratory Disorders: No - NEUROLOGICAL Hx Neurological Disorder: No - HEENT Hx HEENT Problems: No - RENAL Hx Chronic Kidney Disease: No Hx Dialysis: No - ENDOCRINE/METABOLIC Hx Endocrine Disorders: Yes Hx Diabetes Mellitus Type 1: Yes - HEMATOLOGICAL/ONCOLOGICAL Hx Blood Disorders: Yes Hx Anemia: Yes Hx Blood Transfusions: Yes Hx Blood Transfusion Reaction: No - INTEGUMENTARY Hx Dermatological Problems: No - MUSCULOSKELETAL/RHEUMATOLOGICAL Hx Musculoskeletal Disorders: No Hx Falls: No - GASTROINTESTINAL Hx Gastrointestinal Disorders: No - GENITOURINARY/GYNECOLOGICAL Hx Genitourinary Disorders: Yes Hx Urinary Tract Infection: Yes - PSYCHIATRIC Hx Psychophysiologic Disorder: No Hx Substance Use: No - SURGICAL HISTORY Hx Surgeries: Yes 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) - ANESTHESIA Hx Anesthesia: Yes Hx Anesthesia Reactions: No Hx Malignant Hyperthermia: No Has any member of the family had a problem w/ anesthesia?: No Meds Home Medications: Home Medication List Medication Instructions Recorded Confirmed Type Ciprofloxacin [Cipro] 500 mg PO BID 5 Days 03/14/17 Rx Allergies/Adverse Reactions: Allergies Allergy/AdvReac Type Severity Reaction Status Date / Time No Known Allergies Allergy Verified 03/10/17 15:20 - Medications Medications: Current Medications Aspirin (Aspirin Chewable) 81 mg PO DAILY [facility] Last Admin: 03/13/17 09:25 Dose: 81 mg Famotidine (Pepcid) 20 mg PO DAILY [facility] Last Admin: 03/13/17 09:25 Dose: 20 mg Ferric Sodium Gluconate Complex (Ferrlecit) 125 mg IVPB DAILY [facility] Stop: 03/19/17 18:55 Last Admin: 03/13/17 09:26 Dose: 125 mg Heparin Sodium (Porcine) (Heparin) 5,000 units SC Q8 [facility] Last Admin: 03/13/17 13:03 Dose: Not Given Ceftriaxone Sodium 1 gm/ (Sodium Chloride) 100 mls @ 100 mls/hr IVPB Q24H [facility] Last Admin: 03/13/17 04:23 Dose: 100 mls/hr Vancomycin HCl 1 gm/ Sodium (Chloride) 250 mls @ 50 mls/hr IVPB Q12H [facility] Last Admin: 03/13/17 13:02 Dose: 50 mls/hr Insulin Detemir (Levemir) 40 unit SC Q12 [facility] Last Admin: 03/13/17 09:26 Dose: 40 unit Insulin Human Regular (Novolin R) 0 unit SC ACHS [facility] PRN Reason: Protocol Last Admin: 03/13/17 12:49 Dose: 3 unit Losartan Potassium (Cozaar) 25 mg PO DAILY [facility] Last Admin: 03/13/17 09:26 Dose: 25 mg Physical Exam - Constitutional Appears: Well - Head Exam Head Exam: ATRAUMATIC, NORMAL INSPECTION, NORMOCEPHALIC - Eye Exam Eye Exam: EOMI, Normal appearance, PERRL Pupil Exam: NORMAL ACCOMODATION, PERRL - ENT Exam ENT Exam: Mucous Membranes Moist, Normal Exam - Neck Exam Neck exam: Positive for: Normal Inspection - Respiratory Exam Respiratory Exam: Clear to Auscultation Bilateral, NORMAL BREATHING PATTERN - Cardiovascular Exam Cardiovascular Exam: REGULAR RHYTHM, RRR, +S1, +S2 - GI/Abdominal Exam GI & Abdominal Exam: Normal Bowel Sounds, Soft. absent: Tenderness - Rectal Exam Rectal Exam: NORMAL INSPECTION - Extremities Exam Extremities exam: Positive for: normal inspection - Back Exam Back exam: NORMAL INSPECTION - Neurological Exam Neurological exam: Alert, CN II-XII Intact, Oriented x3, Reflexes Normal - Psychiatric Exam Psychiatric exam: Normal Affect, Normal Mood - Skin Skin Exam: Dry, Intact, Normal Color, Warm Results - Vital Signs Recent Vital Signs: Last Vital Signs Temp 98.7 F 03/13/17 09:04 Pulse 86 03/13/17 09:04 Resp 20 03/13/17 09:04 BP 119/79 03/13/17 09:04 Pulse Ox 97 03/13/17 09:04 - Labs Result Diagrams: 03/13/17 11:30 03/13/17 07:21 Labs: Laboratory Results - last 24 hr 03/12/17 03/12/17 03/12/17 16:00 16:40 21:27 WBC RBC Hgb Hct MCV MCH MCHC RDW Plt Count MPV Neut % (Auto) Lymph % (Auto) [place] % (Auto) Eos % (Auto) Baso % (Auto) Neut # Lymph # [place] # Eos # Baso # Differential Comment Sodium Potassium Chloride Carbon Dioxide Anion Gap BUN Creatinine Est GFR ( Amer) Est GFR (Non-Af Amer) POC Glucose (mg/dL) 111 H 243 H Random Glucose Calcium Total Bilirubin AST ALT Alkaline Phosphatase Total Protein Albumin Globulin Albumin/Globulin Ratio Triglycerides Cholesterol LDL Cholesterol Direct HDL Cholesterol Urine HCG, Qual Negative Vancomycin Trough 03/13/17 03/13/17 03/13/17 06:31 07:21 07:21 WBC RBC Hgb Hct MCV MCH MCHC RDW Plt Count MPV Neut % (Auto) Lymph % (Auto) [place] % (Auto) Eos % (Auto) Baso % (Auto) Neut # Lymph # [place] # Eos # Baso # Differential Comment Sodium 139 Potassium 4.2 Chloride 104 Carbon Dioxide 23 Anion Gap 16 BUN 11 Creatinine 0.6 L Est GFR ( Amer) > 60 Est GFR (Non-Af Amer) > 60 POC Glucose (mg/dL) 115 H Random Glucose 101 Calcium 8.7 Total Bilirubin 0.5 AST 20 ALT 20 Alkaline Phosphatase 59 Total Protein 7.0 Albumin 3.5 Globulin 3.5 Albumin/Globulin Ratio 1.0 Triglycerides 60 D Cholesterol 121 LDL Cholesterol Direct 65 HDL Cholesterol 51 Urine HCG, Qual Vancomycin Trough 13.9 H 03/13/17 03/13/17 11:04 11:30 WBC 7.1 RBC 5.10 Hgb 8.4 L Hct 30.0 L MCV 58.7 L MCH 16.5 L MCHC 28.1 L RDW 40.6 H Plt Count 194 MPV 9.0 Neut % (Auto) 73.9 Lymph % (Auto) 14.4 L [place] % (Auto) 5.2 Eos % (Auto) 5.9 H Baso % (Auto) 0.6 Neut # 5.2 Lymph # 1.0 [place] # 0.4 Eos # 0.4 Baso # 0.0 Differential Comment Sodium Potassium Chloride Carbon Dioxide Anion Gap BUN Creatinine Est GFR ( Amer) Est GFR (Non-Af Amer) POC Glucose (mg/dL) 239 H Random Glucose Calcium Total Bilirubin AST ALT Alkaline Phosphatase Total Protein Albumin Globulin Albumin/Globulin Ratio Triglycerides Cholesterol LDL Cholesterol Direct HDL Cholesterol Urine HCG, Qual Vancomycin Trough Assessment & Plan (1) Endocarditis determined by echocardiography Assessment and Plan: clinical suspicion low no evidence to suggest persistent bacteremia no indication for CARL at this time Rx for SA UTI per ID Status: Acute (2) Anemia Status: Acute (3) UTI (urinary tract infection) Status: Acute
--- NOTE | 2017-03-13 15:30 | CP.PCM.PN ---
Subjective - Date & Time of Evaluation Date of Evaluation: 03/13/17 Time of Evaluation: 03:15 - Subjective Subjective: dictated Objective - Vital Signs/Intake and Output Vital Signs (last 24 hours): Temp Pulse Resp BP Pulse Ox 98.7 F 86 20 119/79 97 03/13/17 09:04 03/13/17 09:04 03/13/17 09:04 03/13/17 09:04 03/13/17 09:04 - Medications Medications: Current Medications Aspirin (Aspirin Chewable) 81 mg PO DAILY [facility] Last Admin: 03/13/17 09:25 Dose: 81 mg Ciprofloxacin (Cipro) 500 mg PO BID [facility] Famotidine (Pepcid) 20 mg PO DAILY [facility] Last Admin: 03/13/17 09:25 Dose: 20 mg Ferric Sodium Gluconate Complex (Ferrlecit) 125 mg IVPB DAILY [facility] Stop: 03/19/17 18:55 Last Admin: 03/13/17 09:26 Dose: 125 mg Heparin Sodium (Porcine) (Heparin) 5,000 units SC Q8 [facility] Last Admin: 03/13/17 13:03 Dose: Not Given Vancomycin HCl 1 gm/ Sodium (Chloride) 250 mls @ 50 mls/hr IVPB Q12H [facility] Last Admin: 03/13/17 13:02 Dose: 50 mls/hr Insulin Detemir (Levemir) 40 unit SC Q12 [facility] Last Admin: 03/13/17 09:26 Dose: 40 unit Insulin Human Regular (Novolin R) 0 unit SC ACHS [facility] PRN Reason: Protocol Last Admin: 03/13/17 12:49 Dose: 3 unit Losartan Potassium (Cozaar) 25 mg PO DAILY [facility] Last Admin: 03/13/17 09:26 Dose: 25 mg - Labs Labs: 03/13/17 11:30 03/13/17 07:21
--- NOTE | 2017-03-13 18:13 | CP.PCM.PN ---
Subjective - Date & Time of Evaluation Date of Evaluation: 03/13/17 Time of Evaluation: 17:15 - Subjective Subjective: No complaints Objective - Vital Signs/Intake and Output Vital Signs (last 24 hours): Temp Pulse Resp BP Pulse Ox 97.9 F 81 20 126/76 96 03/13/17 15:57 03/13/17 15:57 03/13/17 15:57 03/13/17 15:57 03/13/17 15:57 Intake and Output: 03/13/17 03/13/17 06:59 18:59 Intake Total 1320 Balance 1320 - Medications Medications: Current Medications Aspirin (Aspirin Chewable) 81 mg PO DAILY [facility] Last Admin: 03/13/17 09:25 Dose: 81 mg Ciprofloxacin (Cipro) 500 mg PO BID [facility] Last Admin: 03/13/17 17:26 Dose: 500 mg Diphenhydramine HCl (Benadryl) 25 mg PO Q6 [facility] Stop: 03/14/17 18:00 Last Admin: 03/13/17 17:26 Dose: 25 mg Famotidine (Pepcid) 20 mg PO DAILY [facility] Last Admin: 03/13/17 09:25 Dose: 20 mg Ferric Sodium Gluconate Complex (Ferrlecit) 125 mg IVPB DAILY [facility] Stop: 03/19/17 18:55 Last Admin: 03/13/17 09:26 Dose: 125 mg Heparin Sodium (Porcine) (Heparin) 5,000 units SC Q8 [facility] Last Admin: 03/13/17 13:03 Dose: Not Given Vancomycin HCl 1 gm/ Sodium (Chloride) 250 mls @ 50 mls/hr IVPB Q12H [facility] Last Admin: 03/13/17 13:02 Dose: 50 mls/hr Insulin Detemir (Levemir) 40 unit SC Q12 [facility] Last Admin: 03/13/17 09:26 Dose: 40 unit Insulin Human Regular (Novolin R) 0 unit SC ACHS [facility] PRN Reason: Protocol Last Admin: 03/13/17 17:28 Dose: 3 unit Losartan Potassium (Cozaar) 25 mg PO DAILY [facility] Last Admin: 03/13/17 09:26 Dose: 25 mg - Labs Labs: 03/13/17 11:30 03/13/17 07:21 - Head Exam Head Exam: ATRAUMATIC - Eye Exam Eye Exam: Normal appearance - ENT Exam ENT Exam: Mucous Membranes Dry - Respiratory Exam Respiratory Exam: NORMAL BREATHING PATTERN - Cardiovascular Exam Cardiovascular Exam: +S1, +S2 - GI/Abdominal Exam GI & Abdominal Exam: Normal Bowel Sounds - Extremities Exam Extremities Exam: Normal Inspection Assessment and Plan (1) Iron deficiency anemia Assessment & Plan: on IV iron H/H improved f/u FOBT Status: Acute
--- NOTE | 2017-03-13 20:06 | CP.PCM.PN ---
Subjective - Date & Time of Evaluation Date of Evaluation: 03/13/17 Time of Evaluation: 07:10 - Subjective Subjective: PGY-[address] Booth Patient seen and examined at bedside. Patient complaining of face tightness and urticaria on the arms. Patient also complained of flushing. Patient denies fevers, chills, headaches, dizziness, chest pain, SOB, abdominal pain, dysuria. Objective - Vital Signs/Intake and Output Vital Signs (last 24 hours): Temp Pulse Resp BP Pulse Ox 97.9 F 81 20 126/76 96 03/13/17 15:57 03/13/17 15:57 03/13/17 15:57 03/13/17 15:57 03/13/17 15:57 Intake and Output: 03/13/17 03/14/17 18:59 06:59 Intake Total 1320 Balance 1320 - Medications Medications: Current Medications Aspirin (Aspirin Chewable) 81 mg PO DAILY [facility] Last Admin: 03/13/17 09:25 Dose: 81 mg Ciprofloxacin (Cipro) 500 mg PO BID [facility] Last Admin: 03/13/17 17:26 Dose: 500 mg Diphenhydramine HCl (Benadryl) 25 mg PO Q6 [facility] Stop: 03/14/17 18:00 Last Admin: 03/13/17 17:26 Dose: 25 mg Famotidine (Pepcid) 20 mg PO DAILY [facility] Last Admin: 03/13/17 09:25 Dose: 20 mg Ferric Sodium Gluconate Complex (Ferrlecit) 125 mg IVPB DAILY [facility] Stop: 03/19/17 18:55 Last Admin: 03/13/17 09:26 Dose: 125 mg Heparin Sodium (Porcine) (Heparin) 5,000 units SC Q8 [facility] Last Admin: 03/13/17 13:03 Dose: Not Given Vancomycin HCl 1 gm/ Sodium (Chloride) 250 mls @ 50 mls/hr IVPB Q12H [facility] Last Admin: 03/13/17 13:02 Dose: 50 mls/hr Insulin Detemir (Levemir) 40 unit SC Q12 [facility] Last Admin: 03/13/17 09:26 Dose: 40 unit Insulin Human Regular (Novolin R) 0 unit SC ACHS [facility] PRN Reason: Protocol Last Admin: 03/13/17 17:28 Dose: 3 unit Losartan Potassium (Cozaar) 25 mg PO DAILY [facility] Last Admin: 03/13/17 09:26 Dose: 25 mg - Labs Labs: 03/13/17 11:30 03/13/17 07:21 - Constitutional Appears: No Acute Distress - Head Exam Head Exam: ATRAUMATIC, NORMAL INSPECTION, NORMOCEPHALIC Additional comments: Erythema around the forehead and cheekbones - Eye Exam Eye Exam: EOMI, PERRL - ENT Exam ENT Exam: Mucous Membranes Moist - Respiratory Exam Respiratory Exam: Clear to Ausculation Bilateral. absent: Rales, Rhonchi, Wheezes - Cardiovascular Exam Cardiovascular Exam: REGULAR RHYTHM, +S1, +S2 - GI/Abdominal Exam GI & Abdominal Exam: Soft, Normal Bowel Sounds. absent: Tenderness - Back Exam Back Exam: absent: CVA tenderness (L), CVA tenderness (R) - Neurological Exam Neurological Exam: Alert, Awake, Oriented x3 - Skin Skin Exam: Dry, Intact, Warm Additional comments: acanthosis nigricans seen around neck and upper back erythema noted in the face. urticaria not appreciated on clinical inspection at the time. Assessment and Plan - Assessment and Plan (Free Text) Plan: 1. UTI Ceftriaxone 1 gm Q24H since 03/10. Discontinued 03/13. Replaced with Cipro 500 mg PO BID on 03/13. Vancomycin 1 gm Q12 added 03/11 due to S. Aureus in the urine Dr. Landeros (ID) consulted, help appreciated. Blood cultures negative so far. Echo shows 68% LVEF but moderately thickened mitral valve. Unable to r/o vegetation formation. Dr. Villalobos (cardiology) was consulted for the thickened mitral valve, but he stated that due to the lack of S. aureus in the bloodstream, patient is not a candidate for CARL at this time. CT abd/pelvis showed normal kidneys but revealed hepatic steatosis, possible fibroids, and possible right ovarian cyst * 03/13: the patient experienced Red Man Syndrome. So Vancomycin's rate of infusion was decreased to 50 cc/hr. One time Benadryl dose given. * Dr. Landeros recommended and ordered scheduled Benadryl Q6H. 2. Symptomatic Anemia with Hx alpha thalassemia Hgb 5.3 on admission, given 2 units PRBCs which raised to 7.1 Transfused 3 total units of PRBCs during this admission Dr. Thomas, heme-onc, consulted- help appreciated IV ferrlicet daily 3. Diabetes Hgb A1c 8.1 Levemir 40u Q12h Regular [facility] Home medication Losartan 25mg daily for renal protection as well as ASA 81mg accuchecks ACHS 4. Prophylactic measure heparin 5000 units SC Q8 pepcid 20 mg PO daily [facility] Dr. Emmy Duffy PGY-1
--- NOTE | 2017-03-13 22:59 | PN ---
DATE: 03/13/2017 SUBJECTIVE: I went to see her, she has puffiness on her face. She said she had some itching this morning. She is still getting vancomycin, and she denies any shortness of breath, but she says she did have itchiness this morning and she still feels itchy and face is all swelled up. She is on vancomycin and I think that is the culprit. *------*she is truly allergic to it, I will discontinue it. PHYSICAL EXAMINATION VITAL SIGNS: T-may is 98.7, pulse 86, blood pressure 119/79, respirations are 20. HEENT: Head is atraumatic, normocephalic. Face is puffy. NECK: Supple. LUNGS: No wheezing or rhonchi. Clear. HEART: S1 and S2 are regular. ABDOMEN: Soft, nontender. No guarding, no rigidity present. GENITOURINARY: She denies any dysuria now. EXTREMITIES: Have no edema. LABORATORY DATA: White count is 7.1. BUN is 11, creatinine 0.6. PLAN: The micro Staph aureus is also sensitive to Cipro a lot, so she can go on Cipro for 5 days 500 mg b.i.d. The patent's echo, I was told has some thickening. Cultures were negative, but blood cultures were done after she was started on antibiotics and she also had a CAT scan. The CAT scan just showed kidney; no evidence of hydro or obstructive lesions. Small pelvic and right pericolic free fluid, hepatic steatosis, hepatomegaly, tiny fat continuing umbilical hernia. Abnormal, lobulated and large appearance of uterus compatible with fibroids, probable right ovarian cyst on pelvic ultrasound, so she needs to follow with [employer] and rail car mechanic. I would discontinue the vancomycin at this time, unable to do so because somebody was using the screen, but I would discontinue vancomycin. Since she had a mitral thickened valve, rail car mechanic is evaluating and I am awaiting for their note. Santana Landeros MD
[2017-03-14 00:09] VITALS: O2SAT 97
[2017-03-14 07:40] LABS: BASO % 0.5 % (0.0-2.0); EOS # 0.8 K/uL (0.0-0.7); EOS % 13.1 % (0.0-4.0); HEMATOCRIT 31.1 % (34.0-47.0); LYMPH # 1.1 K/uL (1.0-4.3); LYMPH % 17.9 % (20.0-40.0); MEAN CELL VOLUME 58.6 fL (81.0-99.0); MEAN CORPUSCULAR HEMOGLOBIN 16.2 pg (27.0-31.0); MEAN CORPUSCULAR HGB CONC 27.7 g/dL (33.0-37.0); MEAN PLATELET VOLUME 9.6 fL (7.2-11.7); MONO # 0.4 K/uL (0.0-0.8); MONO % 6.2 % (0.0-10.0); RED CELL DISTRIBUTION WIDTH 40.5 % (11.5-14.5); WHITE BLOOD COUNT 6.1 K/uL (4.8-10.8)
[2017-03-14 08:09] LABS: CHLORIDE 101 mmol/L (98-107)
[2017-03-14 08:10] LABS: SODIUM 136 mmol/L (132-148)
[2017-03-14 08:11] LABS: POTASSIUM 4.2 mmol/L (3.6-5.2)
[2017-03-14 08:12] LABS: GFR AFRICAN-AMERICAN > 60
[2017-03-14 08:13] LABS: ALKALINE PHOSPHATASE 73 U/L (38-126); ALT/SGPT 17 U/L (9-52); AST/SGOT 14 U/L (14-36); BILIRUBIN,TOTAL 0.4 mg/dL (0.2-1.3); BLOOD UREA NITROGEN 13 mg/dL (7-17); CARBON DIOXIDE 23 mmol/L (22-30); GLUCOSE,RANDOM 204 mg/dL (65-105); TOTAL PROTEIN 6.3 g/dL (6.3-8.3)
[2017-03-14 08:14] LABS: CALCIUM 8.6 mg/dl (8.6-10.4)
[2017-03-14 09:16] VITALS: BP 136/78; PULSE 83; RESP 18; TEMP 98.8
[2017-03-14] MEDS: Insulin Detemir 100 units/ml Vial (Levemir) SC SCH (10:03)
[2017-03-14] MEDS: (Novolin R) Insulin Human Regular 100 units/ml vial SC SCH ×2 (10:03→12:38)
[2017-03-14] MEDS: Ferric Sodium Gluconat Complex 62.5 mg/5 ml Vial IVPB SCH (10:04)
--- NOTE | 2017-03-14 13:30 | CP.PCM.DIS ---
Provider - Provider Date of Admission: 03/10/17 18:17 Attending physician: Blair Rolle MD Primary care physician: Beatriz Delgado Consults: Heme = [place] ID = [email or web address] Time Spent in preparation of Discharge (in minutes): 60 Hospital Course - Lab Results Lab Results: Micro Results 03/11/17 11:38 Blood Blood Culture - Preliminary NO GROWTH AFTER 48 HOURS Most Recent Lab Values WBC 6.1 K/uL (4.8-10.8) 03/14/17 07:28 RBC 5.30 Mil/uL (3.80-5.20) H 03/14/17 07:28 Hgb 8.6 g/dL (11.0-16.0) L 03/14/17 07:28 Hct 31.1 % (34.0-47.0) L 03/14/17 07:28 MCV 58.6 fL (81.0-99.0) L 03/14/17 07:28 MCH 16.2 pg (27.0-31.0) L 03/14/17 07:28 MCHC 27.7 g/dL (33.0-37.0) L 03/14/17 07:28 RDW 40.5 % (11.5-14.5) H 03/14/17 07:28 Plt Count 171 K/uL (130-400) 03/14/17 07:28 MPV 9.6 fL (7.2-11.7) 03/14/17 07:28 Neut % (Auto) 62.3 % (50.0-75.0) 03/14/17 07:28 Lymph % (Auto) 17.9 % (20.0-40.0) L 03/14/17 07:28 [place] % (Auto) 6.2 % (0.0-10.0) 03/14/17 07:28 Eos % (Auto) 13.1 % (0.0-4.0) H 03/14/17 07:28 Baso % (Auto) 0.5 % (0.0-2.0) 03/14/17 07:28 Neut # 3.8 K/uL (1.8-7.0) 03/14/17 07:28 Lymph # 1.1 K/uL (1.0-4.3) 03/14/17 07:28 [place] # 0.4 K/uL (0.0-0.8) 03/14/17 07:28 Eos # 0.8 K/uL (0.0-0.7) H 03/14/17 07:28 Baso # 0.0 K/uL (0.0-0.2) 03/14/17 07:28 Neutrophils % (Manual) 59 % (50-75) 03/12/17 01:23 Lymphocytes % (Manual) 31 % (20-40) 03/12/17 01:23 Reactive Lymphs % 4 % (0-0) H 03/12/17 01:23 Monocytes % (Manual) 4 % (0-10) 03/12/17 01:23 Eosinophils % (Manual) 2 % (0-4) 03/12/17 01:23 Differential Comment 03/13/17 11:30 Platelet Estimate Normal (NORMAL) 03/12/17 01:23 Polychromasia Slight 03/12/17 01:23 Hypochromasia (manual) Moderate 03/12/17 01:23 Poikilocytosis (manual Slight 03/12/17 01:23 Anisocytosis (manual) Marked 03/12/17 01:23 Microcytosis (manual) Marked 03/12/17 01:23 Spherocytes Slight 03/12/17 01:23 Tear Drop Cells Slight 03/12/17 01:23 Ovalocytes Slight 03/12/17 01:23 Schistocytes Slight 03/12/17 01:23 Retic Count 2.3 % (0.5-1.5) H 03/10/17 21:55 Sodium 136 mmol/L (132-148) 03/14/17 07:28 Potassium 4.2 mmol/L (3.6-5.2) 03/14/17 07:28 Chloride 101 mmol/L (98-107) 03/14/17 07:28 Carbon Dioxide 23 mmol/L (22-30) 03/14/17 07:28 Anion Gap 16 (10-20) 03/14/17 07:28 BUN 13 mg/dL (7-17) 03/14/17 07:28 Creatinine 0.7 MG/DL (0.7-1.2) 03/14/17 07:28 Est GFR ( Amer) > 60 03/14/17 07:28 Est GFR (Non-Af Amer) > 60 03/14/17 07:28 POC Glucose (mg/dL) 192 mg/dL (65-110) H 03/14/17 11:38 Random Glucose 204 mg/dL (65-105) H 03/14/17 07:28 Hemoglobin A1c 8.1 % (4.2-6.5) H D 03/10/17 21:55 Calcium 8.6 mg/dl (8.6-10.4) 03/14/17 07:28 % Saturation < 2.4 (20-55) L 03/10/17 21:55 Ferritin 2.9 ng/mL 03/10/17 21:55 Total Bilirubin 0.4 mg/dL (0.2-1.3) 03/14/17 07:28 AST 14 U/L (14-36) D 03/14/17 07:28 ALT 17 U/L (9-52) 03/14/17 07:28 Alkaline Phosphatase 73 U/L (38-126) 03/14/17 07:28 Total Protein 6.3 g/dL (6.3-8.3) 03/14/17 07:28 Albumin 3.2 g/dL (3.5-5.0) L 03/14/17 07:28 Globulin 3.1 gm/dL (2.2-3.9) 03/14/17 07:28 Albumin/Globulin Ratio 1.0 (1.0-2.1) 03/14/17 07:28 Triglycerides 60 mg/dL (0-149) D 03/13/17 07:21 Cholesterol 121 mg/dL (0-199) 03/13/17 07:21 LDL Cholesterol Direct 65 mg/dL (0-129) 03/13/17 07:21 HDL Cholesterol 51 mg/dL (30-70) 03/13/17 07:21 Vitamin B12 > 1000 pg/mL (239-931) H 03/10/17 21:55 Folate 10.3 ng/mL 03/10/17 21:55 Procalcitonin 0.05 NG/ML (0.19-0.49) L 03/11/17 11:37 Urine Color Yellow (YELLOW) 03/10/17 15:37 Urine Clarity Turbid (Clear) 03/10/17 15:37 Urine pH 5.0 (5.0-8.0) 03/10/17 15:37 Ur Specific [place] 1.016 (1.003-1.030) 03/10/17 15:37 Urine Protein 2+ mg/dL (NEGATIVE) H 03/10/17 15:37 Urine Glucose (UA) 3+ mg/dL (Normal) H 03/10/17 15:37 Urine Ketones Negative mg/dL (NEGATIVE) 03/10/17 15:37 Urine Blood 2+ (NEGATIVE) H 03/10/17 15:37 Urine Nitrate Negative (NEGATIVE) 03/10/17 15:37 Urine Bilirubin Negative (NEGATIVE) 03/10/17 15:37 Urine Urobilinogen Normal mg/dL (0.2-1.0) 03/10/17 15:37 Ur Leukocyte Esterase 3+ [place]/uL (Negative) H 03/10/17 15:37 Urine WBC (Auto) 1227 /hpf (0-5) H 03/10/17 15:37 Urine RBC (Auto) 24 /hpf (0-3) H 03/10/17 15:37 Urine WBC Clumps (Auto) Many /hpf (NONE) H 03/10/17 15:37 Ur Squamous Epith Cells 5 /hpf (0-5) 03/10/17 15:37 Urine Bacteria Mod (<OCC) H 03/10/17 15:37 Urine Yeast (Budding) Many /hpf (NEGATIVE) H 03/10/17 15:37 Urine HCG, Qual Negative (NEGATIVE) 03/12/17 16:00 Vancomycin Trough 13.9 ug/mL (5.0-10.0) H 03/13/17 07:21 Serum Ketones Negative (NEGATIVE) 03/10/17 16:53 Blood Type O POSITIVE 03/10/17 17:35 Antibody Screen Negative 03/10/17 17:35 - Hospital Course Hospital Course: Patient is a 41 year old female with past medical history of diabetes, iron deficiency anemia, and alpha thalassemia who presents with complaint of suprapubic pressure for two days. Patient states she did not seek other medical attention for this and figured she would just come to the ED for antibiotics. Patient has had UTI in the past and states her current symptoms feel similar. Patient also complains of arm and leg heaviness and generalized fatigue for the past 6 months. Patient states she recently saw her PMD on for visit regarding diabetes management. Patient was taken off of her metformin and levemir regimen at that time and started on toujeo. Patient states since starting toujeo her fasting sugars have been high, but decreasing. Her fasting sugar on day of admission was 221. Patient denies nausea, vomiting, diarrhea, constipation. Patient denies fevers and chills. Presented to ER for suprapubic pain 03/10/17 Echocardiogram was performed 03/10/17 Urine culture performed on 03/10/17 grew staph aureus Infectious disease, Dr. Landeros, was consulted 03/11/17 Due to patients anemia, Dr. Thomas was consulted 03/11/17 Abdomen/Pelvis CT was performed on 03/11/17. Kidneys were enhanced symmetrically. No hydronephoris or obstructing calculous. Small pelvic and right pericolic fluid. Hepatic steatosis. Hepatomegaly. Tiny fat containing umbilical hernia. Enlarged appearance of uterus compatible with fibroids. 2.4 cm right ovarian cyst Renal ultrasound performed 03/11/17. Results were unremarkable Blood culture performed 03/11/17 and came back with no bacterial growth Dr. Villalobos consulted on 03/13/17 for anemia Patient looks well on bed check. - Date & Time of H&P Date of H&P: 03/10/17 Time of H&P: 22:20 Discharge Exam - Head Exam Head Exam: ATRAUMATIC, NORMAL INSPECTION, NORMOCEPHALIC - Eye Exam Eye Exam: EOMI - ENT Exam ENT Exam: Mucous Membranes Moist - Respiratory Exam Respiratory Exam: NORMAL BREATHING PATTERN, UNREMARKABLE - Cardiovascular Exam Cardiovascular Exam: REGULAR RHYTHM - GI/Abdominal Exam GI & Abdominal Exam: Normal Bowel Sounds, Soft, Unremarkable. absent: Distended , Tenderness - Neurological Exam Neurological exam: Alert - Psychiatric Exam Psychiatric exam: Normal Affect, Normal Mood - Skin Skin Exam: Dry, Intact, Normal Color, Warm Discharge Plan - Discharge Medications Prescriptions: Ciprofloxacin [Cipro] 500 mg PO BID 5 Days - Follow Up Plan Condition: STABLE Disposition: HOME/ ROUTINE Instructions: Ciprofloxacin (By mouth), Urinary Tract Infection in Women (GEN) , Iron Rich Diet (GEN), Iron Deficiency Anemia (GEN), Anemia (GEN), Diabetic Hyperglycemia (GEN), Urinary Tract Infection in Women (DC), Urinary Tract Infection in Men (DC), Dysuria (GEN) Additional Instructions: 1) Take Ciprofloxacin 500 mg by mouth twice a day for 5 days. 2) Continue your home Toujeo, Aspirin, and Losartan. 3) Your CT scan of the abdomen and pelvis showed an abnormally enlarged uterus suggesting fibroids as well as a 2.4 cm probable right ovarian cyst. You mentioned an upcoming appointment with your Plant Inspector. Please bring this up with your doctor at your visit. 4) Please follow up with Dr. Delgado within 7-10 days of discharge. As you are aware, your blood sugars have not been controlled well on your previous medications, and you have just recently started Toujeo at home. Please discuss your plan of care with Dr. Delgado as your hemoglobin A1C recorded in the hospital was 8.1 5) If you have any emergency symptoms such as chest pain, trouble breathing, facial swelling, please seek immediate medical attention. Referrals: Christian Thomas MD [Staff Provider] -
--- NOTE | 2017-03-14 21:28 | CP.PCM.PN ---
Subjective - Date & Time of Evaluation Date of Evaluation: 03/14/17 Time of Evaluation: 09:00 - Subjective Subjective: denies any complaints no fevers no discomfort Objective - Vital Signs/Intake and Output Vital Signs (last 24 hours): Temp Pulse Resp BP Pulse Ox 98.8 F 83 18 136/78 97 03/14/17 08:00 03/14/17 08:00 03/14/17 08:00 03/14/17 08:00 03/14/17 08:00 Intake and Output: 03/14/17 03/15/17 18:59 06:59 Intake Total 580 Balance 580 - Labs Labs: 03/14/17 07:28 03/14/17 07:28 - Constitutional Appears: Well - Head Exam Head Exam: ATRAUMATIC, NORMAL INSPECTION, NORMOCEPHALIC - Eye Exam Eye Exam: EOMI, Normal appearance, PERRL Pupil Exam: NORMAL ACCOMODATION, PERRL - ENT Exam ENT Exam: Mucous Membranes Moist, Normal Exam - Neck Exam Neck Exam: Full ROM, Normal Inspection. absent: Lymphadenopathy - Respiratory Exam Respiratory Exam: Clear to Ausculation Bilateral, NORMAL BREATHING PATTERN - Cardiovascular Exam Cardiovascular Exam: REGULAR RHYTHM, +S1, +S2, Murmur - GI/Abdominal Exam GI & Abdominal Exam: Soft, Normal Bowel Sounds. absent: Tenderness - Exam Bimanual exam: NORMAL BIMANUAL EXAM - Extremities Exam Extremities Exam: Full ROM, Normal Capillary Refill, Normal Inspection. 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
== END 2017-03-14 14:45 | disposition home or self-care (01) | DRG 320 ==
LOC: C.ER 15:12 → C.9E 18:17 → C.5T 21:42
PROVIDERS: ADMIT Internal Medicine; ATTEND Internal Medicine
DX: N39.0 Urinary tract infection, site not specified (principal); E10.65 Type 1 diabetes mellitus with hyperglycemia; K76.0 Fatty (change of) liver, not elsewhere classified; D50.9 Iron deficiency anemia, unspecified; D56.0 Alpha thalassemia; D25.9 Leiomyoma of uterus, unspecified; I34.8 Other nonrheumatic mitral valve disorders; N83.201 Unspecified ovarian cyst, right side; B95.61 Methicillin susceptible Staphylococcus aureus infection as the cause of diseases classified elsewhere; L50.9 Urticaria, unspecified; Z79.4 Long term (current) use of insulin; Z82.49 Family history of ischemic heart disease and other diseases of the circulatory system; Z83.3 Family history of diabetes mellitus; Z87.440 Personal history of urinary (tract) infections